=== PATIENT | female | born 1945 | race Caucasian/White ===

== ENCOUNTER 2016-06-26 14:01 | Inpatient (IN) | payer MEDICARE ==
[~2016-06-26] VITALS: Ht 170.2 cm; Wt 79.2 kg
[~2016-06-26 14:01] MED LIST: ALBU18HF INH; BENZ100C PO; DIAZ5TAB4 PO; FLUT1BLS INH; GUAI120L37 PO; METO10TA82 PO; OMEP20CA14 PO; ONDA4TAB7 PO; SENN1TAB5 PO; TEMA15CA6 PO; TIOT18CA INH; ZOLP12.52 PO
[2016-06-26] MEDS ORDERED: SODIUM CHLORIDE FLUSH 10ML SYR IVF ONE (14:30)
[2016-06-26] MEDS ORDERED: FURO20TA3 PO (14:33)
[2016-06-26] MEDS ORDERED: POTA10TA11 PO (14:33)
[2016-06-26] MEDS ORDERED: VANCOMYCIN 1,500 MG in SODIUM CHLORIDE 0.9% 250 ML IV ONE (16:30)
[2016-06-26] MEDS ORDERED: CEFTRIAXONE PMX 1GM/50ML 50 ML IVPB ONE (16:30)
[2016-06-26] MEDS ORDERED: VANCOMYCIN PER PHARMACY MC ONE (16:30)
[2016-06-26 16:41] LABS: PATH.CAST-FLAG NOT PRESENT; SPERM-FLAG NOT PRESENT; SRC-FLAG NOT PRESENT; XTAL-FLAG NOT PRESENT; YLC-FLAG NOT PRESENT
[2016-06-26] MEDS ORDERED: CEFTRIAXONE PMX 1GM/50ML 50 ML ONE (16:59)
[2016-06-26 17:04] LABS: HEMOGLOBIN 8.7 g/dL (11.7-16.4)
[2016-06-26 17:07] LABS: ASPARTATE AMINO TRANSFERASE 36 U/L (15-37); BLOOD UREA NITROGEN 10 mg/dL (7-18)
[2016-06-26 17:11] LABS: DIFF TOTAL CELLS COUNTED 100 CELL DIFF
[2016-06-26 17:15] LABS: VERIFY COUNTS? YES
[2016-06-26 17:16] LABS: ANISOCYTOSIS 1+
[2016-06-26 17:17] LABS: POLYCHROMASIA 1+
[2016-06-26] MEDS ORDERED: SODIUM CHLORIDE FLUSH 10ML SYR IVF PRN (18:00)
[2016-06-26] MEDS ORDERED: VANCOMYCIN PER PHARMACY MC PRN (19:00)
[2016-06-26] MEDS ORDERED: FUROSEMIDE 20 MG/2 ML IV ONE ×2 (19:00→19:30)
[2016-06-26] MEDS ORDERED: DOCUSATE 100 MG CAPSULE PO PRN (19:30)
[2016-06-26] MEDS ORDERED: POLYETHYLENE GLYCOL 17 GM PACKET PO PRN (19:30)
[2016-06-26] MEDS ORDERED: ALBUTEROL SULFATE INH PRN (19:30)
[2016-06-26] MEDS ORDERED: BISACODYL 10 MG SUPP PR PRN (19:30)
[2016-06-26] MEDS ORDERED: CEFTRIAXONE PMX 1GM/50ML 50 ML IV SCH (19:30)
[2016-06-26] MEDS ORDERED: METOCLOPRAMIDE 10MG TABLET PO PRN (19:30)
[2016-06-26] MEDS ORDERED: ONDANSETRON 2MG/ML, 2ML IVP PRN (19:30)
[2016-06-26] MEDS ORDERED: POTASSIUM CHLORIDE 20 MEQ TAB.ER.PRT PO ONE (19:30)
[2016-06-26] MEDS ORDERED: BENZONATATE 100 MG CAPSULE PO PRN (19:30)
[2016-06-26 19:41] LABS: IS PT STATUS REG ER OR PRE ER? NO
[2016-06-26] MEDS ORDERED: PHARMACOKINETIC CONSULTATION MC ONE (20:00)
[2016-06-26] MEDS ORDERED: PHARMACOKINETIC MONITORING MC PRN (20:00)
[2016-06-26] MEDS: ENOXAPARIN 40 MG/0.4 ML SQ SCH (20:34)
[2016-06-26 20:58] VITALS: BP 133/83
[2016-06-26 21:05] LABS: HEMOGLOBIN 8.5 g/dL (11.7-16.4)
[2016-06-26] MEDS ORDERED: ALBUTEROL SULFATE 2.5 MG/3 ML NPPB PRN (22:30)
[2016-06-27 00:44] VITALS: BP 133/83
[2016-06-27] MEDS ORDERED: POTASSIUM PHOSPHATE 44 MEQ in SODIUM CHLORIDE 0.9% 500 ML IV ONE (01:00)
[2016-06-27] MEDS ORDERED: MAGNESIUM SULFATE PMX 2GM/50ML 50 ML IV ONE (01:00)
[2016-06-27 02:01] LABS: IS PT STATUS REG ER OR PRE ER? NO
[2016-06-27 02:35] VITALS: BP 126/72
[2016-06-27 05:21] LABS: HEMOGLOBIN 7.6 g/dL (11.7-16.4)
[2016-06-27 05:22] LABS: ASPARTATE AMINO TRANSFERASE 28 U/L (15-37); BLOOD UREA NITROGEN 13 mg/dL (7-18)
[2016-06-27 05:53] LABS: DIFF TOTAL CELLS COUNTED 100 CELL DIFF
[2016-06-27 05:54] LABS: VERIFY COUNTS? YES
[2016-06-27 05:55] LABS: ANISOCYTOSIS 1+; POLYCHROMASIA 1+
[2016-06-27 05:56] LABS: HYPOCHROMIA 1+
[2016-06-27 05:57] LABS: POIKILOCYTOSIS 1+
[2016-06-27 08:17] VITALS: BP 106/65
[2016-06-27] MEDS: FLUTICASONE/VILANTEROL 200-25MCG/INH INH SCH (09:00)
[2016-06-27] MEDS: OMEPRAZOLE 20 MG CAPSULE.DR PO SCH (09:36)
[2016-06-27] MEDS: FUROSEMIDE 20 MG TABLET PO SCH (09:36)
[2016-06-27 14:13] VITALS: BP 109/66
[2016-06-27] MEDS ORDERED: OMNIPAQUE 350 MG/ML, 100ML BOTTLE ONE (16:48)
[2016-06-27 17:21] LABS: HEMOGLOBIN 8.2 g/dL (11.7-16.4)
[2016-06-27] MEDS: VANCOMYCIN 1,500 MG in SODIUM CHLORIDE 0.9% 250 ML IV SCH (18:16)
[2016-06-27] MEDS: ACETAMINOPHEN 325 MG TABLET PO PRN (18:18)
[2016-06-27] MEDS: ENOXAPARIN 40 MG/0.4 ML SQ SCH (20:27)
[2016-06-27] MEDS: CEFTRIAXONE PMX 1GM/50ML 50 ML IV SCH (20:27)
[2016-06-27 20:41] VITALS: BP 116/74
[2016-06-28] MEDS ORDERED: FOLI-17 PO (01:06)
[2016-06-28 02:00] VITALS: BP 121/76
[2016-06-28 05:18] LABS: BLOOD UREA NITROGEN 13 mg/dL (7-18)
[2016-06-28 05:25] LABS: HEMOGLOBIN 7.2 g/dL (11.7-16.4)
[2016-06-28 06:05] LABS: ANISOCYTOSIS 1+
[2016-06-28 06:06] LABS: MICROCYTOSIS 1+; OVALOCYTES 1+; POLYCHROMASIA 1+; SPHEROCYTES 1+
[2016-06-28 07:30] VITALS: BP 115/71
[2016-06-28] MEDS: OMEPRAZOLE 20 MG CAPSULE.DR PO SCH (09:11)
[2016-06-28] MEDS: FUROSEMIDE 20 MG TABLET PO SCH (09:11)
[2016-06-28 14:50] VITALS: BP 105/64
[2016-06-28] MEDS: VANCOMYCIN 1,500 MG in SODIUM CHLORIDE 0.9% 250 ML IV SCH (17:38)
[2016-06-28 20:11] VITALS: BP 131/71
[2016-06-28] MEDS: FLUTICASONE/VILANTEROL 200-25MCG/INH INH SCH (21:01)
[2016-06-28] MEDS: ENOXAPARIN 40 MG/0.4 ML SQ SCH (21:01)
[2016-06-28] MEDS: CEFTRIAXONE PMX 1GM/50ML 50 ML IV SCH (21:01)
[2016-06-29 02:58] VITALS: BP 110/69
[2016-06-29] MEDS: ACETAMINOPHEN 325 MG TABLET PO PRN (04:54)
[2016-06-29 08:47] VITALS: BP 109/67
[2016-06-29] MEDS: OMEPRAZOLE 20 MG CAPSULE.DR PO SCH (10:15)
[2016-06-29] MEDS: FUROSEMIDE 20 MG TABLET PO SCH (10:15)
[2016-06-29 13:06] VITALS: BP 105/63
[2016-06-29] MEDS: IBUPROFEN 200 MG TABLET PO PRN (15:44)
[2016-06-29] MEDS: VANCOMYCIN 1,500 MG in SODIUM CHLORIDE 0.9% 250 ML IV SCH (17:56)
[2016-06-29 19:29] VITALS: BP 120/75
[2016-06-29] MEDS: ENOXAPARIN 40 MG/0.4 ML SQ SCH (22:40)
[2016-06-29] MEDS: FLUTICASONE/VILANTEROL 200-25MCG/INH INH SCH (22:40)
[2016-06-29] MEDS: CEFTRIAXONE PMX 1GM/50ML 50 ML IV SCH (22:40)
[2016-06-30] VITALS (8 sets, daily range): BP systolic 115–135; BP diastolic 68–79
[2016-06-30 03:55] LABS: HEMOGLOBIN 7.5 g/dL (11.7-16.4)
[2016-06-30] MEDS: FUROSEMIDE 20 MG TABLET PO SCH (09:27)
[2016-06-30] MEDS: OMEPRAZOLE 20 MG CAPSULE.DR PO SCH (09:28)
[2016-06-30] MEDS: VANCOMYCIN 1,500 MG in SODIUM CHLORIDE 0.9% 250 ML IV SCH ×2 (17:54→22:55)
[2016-06-30] MEDS: FLUTICASONE/VILANTEROL 200-25MCG/INH INH SCH (20:16)
[2016-06-30] MEDS: ENOXAPARIN 40 MG/0.4 ML SQ SCH (20:35)
[2016-06-30 23:35] LABS: OCCBLD OBC PASS
[2016-07-01] MEDS: CEFTRIAXONE PMX 1GM/50ML 50 ML IV SCH (00:20)
[2016-07-01] MEDS: IBUPROFEN 200 MG TABLET PO PRN (00:26)
[2016-07-01 02:50] VITALS: BP 143/84
[2016-07-01 07:22] LABS: HEMOGLOBIN 10.4 g/dL (11.7-16.4)
[2016-07-01 07:41] VITALS: BP 121/73
[2016-07-01] MEDS: FUROSEMIDE 20 MG TABLET PO SCH (08:09)
[2016-07-01] MEDS: FLUTICASONE/VILANTEROL 200-25MCG/INH INH SCH (08:09)
[2016-07-01] MEDS: OMEPRAZOLE 20 MG CAPSULE.DR PO SCH (08:09)
[2016-07-01] MEDS ORDERED: CEFD300C2 PO ×2 (11:29→11:31)
== END 2016-07-01 13:50 | disposition home or self-care (01) | DRG 871 ==
LOC: ED 15:39 → EDIP 17:35 → 3NW 19:10
PROVIDERS: ADMIT Hospitalist; ATTEND Internal Medicine
PROC: 0T9B70Z Drainage of Bladder with Drainage Device, Via Natural or Artificial Opening (ICD-10-PCS; principal; 2016-06-26)
PROC: 02HV33Z Insertion of Infusion Device into Superior Vena Cava, Percutaneous Approach (ICD-10-PCS; 2016-06-27)
PROC: B5181ZA Fluoroscopy of Superior Vena Cava using Low Osmolar Contrast, Guidance (ICD-10-PCS; 2016-06-27)
PROC: 30233N1 Transfusion of Nonautologous Red Blood Cells into Peripheral Vein, Percutaneous Approach (ICD-10-PCS; 2016-06-30)
DX: A41.9 Sepsis, unspecified organism (principal); J96.01 Acute respiratory failure with hypoxia; J15.9 Unspecified bacterial pneumonia; C78.01 Secondary malignant neoplasm of right lung; N39.0 Urinary tract infection, site not specified; J44.0 Chronic obstructive pulmonary disease with (acute) lower respiratory infection; E87.6 Hypokalemia; D75.89 Other specified diseases of blood and blood-forming organs; K21.9 Gastro-esophageal reflux disease without esophagitis; J45.909 Unspecified asthma, uncomplicated; D63.8 Anemia in other chronic diseases classified elsewhere; I34.0 Nonrheumatic mitral (valve) insufficiency; Z90.10 Acquired absence of unspecified breast and nipple; Z80.3 Family history of malignant neoplasm of breast; Z88.0 Allergy status to penicillin; Z88.1 Allergy status to other antibiotic agents; Z85.3 Personal history of malignant neoplasm of breast; Z88.2 Allergy status to sulfonamides; Z87.891 Personal history of nicotine dependence; Z85.118 Personal history of other malignant neoplasm of bronchus and lung
CPT/HCPCS: 36415; 36569; 71010; 71275; 76937; 77001; 80048; 80053; 80061; 80202; 81001; 82272; 82607; 82728; 82746; 83605; 83615; 83735; 83880; 84100; 84145; 84443; 84484; 85014; 85018; 85025; 85045; 85610; 85730; 86850; 86870; 86900; 86902; 86922; 86923; 87040; 87086; 93005; 93306; 93970; 99285; J0696; J1650; J3370; Q9967; C1751; J1940; J3475; J7040; J7050; P9016

== ENCOUNTER → 2016-10-24 | Outpatient (CLI) | payer MEDICARE ==
[~2016-10-24] MED LIST changes: +CEFD300C37 PO; +FOLI-17 PO; +FURO20TA3 PO; +OMNIPAQUE 350 MG/ML, 75ML BOTTLE ONE; +POTA10TA11 PO
== END | disposition home or self-care (01) ==
LOC: CFH 13:27
PROVIDERS: ATTEND Internal Medicine Hematology & Oncology
DX: C34.11 Malignant neoplasm of upper lobe, right bronchus or lung (principal); R91.8 Other nonspecific abnormal finding of lung field
CPT/HCPCS: 71260; 82565; Q9967

== ENCOUNTER → 2016-12-19 | Outpatient (CLI) | payer MEDICARE ==
[~2016-12-19] MED LIST changes: +SENN-52 PO; -SENN1TAB5 PO
== END | disposition home or self-care (01) ==
LOC: CFH 09:59
PROVIDERS: ATTEND Internal Medicine Hematology & Oncology
DX: C34.11 Malignant neoplasm of upper lobe, right bronchus or lung (principal); J98.11 Atelectasis; K80.20 Calculus of gallbladder without cholecystitis without obstruction; K76.89 Other specified diseases of liver; K44.9 Diaphragmatic hernia without obstruction or gangrene; E04.1 Nontoxic single thyroid nodule; M85.88 Other specified disorders of bone density and structure, other site; Z85.3 Personal history of malignant neoplasm of breast
CPT/HCPCS: 71260; 82565; Q9967

== ENCOUNTER 2017-02-24 08:24 | Day surgery (SDC) | payer MEDICARE ==
[~2017-02-24] VITALS: Ht 170.2 cm; Wt 82.8 kg
[~2017-02-24 08:24] MED LIST changes: -OMNIPAQUE 350 MG/ML, 75ML BOTTLE ONE
[2017-02-24] MEDS ORDERED: PLEASE ENTER HEIGHT AND WEIGHT MC SCH (09:00)
[2017-02-24] MEDS ORDERED: VANCOMYCIN PMX 1GM/200ML 200 ML IVPB ONE (09:00)
[2017-02-24 09:21] VITALS: BP 137/87
[2017-02-24] MEDS ORDERED: SODIUM CHLORIDE 0.9% 1,000 ML IV SCH (09:23)
[2017-02-24] MEDS ORDERED: LIDOCAINE 1%, 20ML ONE (10:13)
[2017-02-24] MEDS ORDERED: FENTANYL PF 100 MCG/2ML ONE ×2 (10:22→11:48)
[2017-02-24] MEDS ORDERED: MIDAZOLAM 1 MG/ML, 5ML ONE (11:48)
[2017-02-24] MEDS ORDERED: NALOXONE 1 MG/ML, 2ML ONE (11:48)
[2017-02-24] MEDS ORDERED: FLUMAZENIL 0.1 MG/1 ML, 5ML ONE (11:48)
== END 2017-02-24 14:15 ==
LOC: OUT 08:24
PROVIDERS: ATTEND Internal Medicine Hematology & Oncology
DX: Z45.2 Encounter for adjustment and management of vascular access device (principal); C50.919 Malignant neoplasm of unspecified site of unspecified female breast; C34.90 Malignant neoplasm of unspecified part of unspecified bronchus or lung; Z87.891 Personal history of nicotine dependence; Z88.1 Allergy status to other antibiotic agents; Z88.0 Allergy status to penicillin
CPT/HCPCS: 36561; 76937; 77001; 99156; 99157; C1788; J1642; J2250; J3010; J3370; J3490; J7030; J2310

== ENCOUNTER → 2017-04-18 | Outpatient (CLI) | payer MEDICARE | END | disposition home or self-care (01) | LOC: CFH 08:38 | PROVIDERS: ATTEND Internal Medicine Hematology & Oncology | DX: C50.911 Malignant neoplasm of unspecified site of right female breast (principal); C34.11 Malignant neoplasm of upper lobe, right bronchus or lung | CPT/HCPCS: 71260 ==

== ENCOUNTER → 2017-06-26 | Outpatient (CLI) | payer MEDICARE ==
[~2017-06-26] MED LIST changes: +MAGN400T26 PO; +OMNIPAQUE 350 MG/ML, 75ML BOTTLE ONE; +PHOS250T3 PO
== END | disposition home or self-care (01) ==
LOC: RAD 09:41
PROVIDERS: ATTEND Internal Medicine Hematology & Oncology
DX: R91.8 Other nonspecific abnormal finding of lung field (principal); C34.11 Malignant neoplasm of upper lobe, right bronchus or lung; Z85.3 Personal history of malignant neoplasm of breast
CPT/HCPCS: 71260; J1642; Q9967

== ENCOUNTER → 2017-09-26 | Outpatient (CLI) | payer MEDICARE | LOC: CFH 08:54 | PROVIDERS: ATTEND Internal Medicine Hematology & Oncology | DX: C34.11 Malignant neoplasm of upper lobe, right bronchus or lung (principal); Z85.3 Personal history of malignant neoplasm of breast | CPT/HCPCS: 71260; 82565; Q9967 ==

== ENCOUNTER → 2017-12-05 | Outpatient (CLI) | payer MEDICARE ==
[~2017-12-05] MED LIST changes: +OMNIPAQUE 350 MG/ML, 100ML BOTTLE ONE; -OMNIPAQUE 350 MG/ML, 75ML BOTTLE ONE
== END | disposition home or self-care (01) ==
LOC: CFH 08:34
PROVIDERS: ATTEND Internal Medicine Hematology & Oncology
DX: C50.911 Malignant neoplasm of unspecified site of right female breast (principal); C34.11 Malignant neoplasm of upper lobe, right bronchus or lung; Z85.3 Personal history of malignant neoplasm of breast; C78.00 Secondary malignant neoplasm of unspecified lung; Z87.891 Personal history of nicotine dependence
CPT/HCPCS: 71260; 82565; Q9967

== ENCOUNTER 2018-02-09 16:03 | Inpatient (IN) | payer MEDICARE ==
[~2018-02-09] VITALS: Ht 170.2 cm; Wt 87.8 kg
[~2018-02-09 16:03] MED LIST changes: -OMNIPAQUE 350 MG/ML, 100ML BOTTLE ONE
[2018-02-09 16:57] LABS: ANION GAP 12 mmol/L (5-15); CALCIUM 8.4 mg/dL (8.5-10.1); CHLORIDE 102 mmol/L (98-107); CREATININE 1.33 mg/dL (0.55-1.02)
[2018-02-09 16:59] LABS: BASOPHILS % (AUTO) 0 % (0-1); EOSINOPHILS # (AUTO) 0.11 x10^3/uL (0-0.4); EOSINOPHILS % (AUTO) 2 % (1-7); LYMPHOCYTES # (AUTO) 3.82 x10^3/uL (1-3.4); LYMPHOCYTES % (AUTO) 58 % (22-44); MD SCAN; MEAN CORPUSCULAR HEMOGLOBIN 36.5 pg (27.0-34.8); MEAN CORPUSCULAR HGB CONC 34.8 g/dL (32.4-35.8); MEAN PLATELET VOLUME 8.2 fL (7.4-10.4); MONOCYTES # (AUTO) 0.26 x10^3/uL (0.2-0.8); MONOCYTES % (AUTO) 4 % (2-9); NEUTROPHILS # (AUTO) 2.43 x10^3/uL (1.8-6.8); NEUTROPHILS % (AUTO) 37 % (42-75); RED BLOOD COUNT 1.94 x10^6/uL (3.82-5.3); RED CELL DISTRIBUTION WIDTH 13.3 % (9.6-15.2)
[2018-02-09 17:00] LABS: PLATELET COUNT 5 x10^3/uL (130-400)
[2018-02-09] MEDS ORDERED: FOLI0.4T2 PO (17:13)
[2018-02-09] MEDS ORDERED: POTA25TA4 PO (17:14)
[2018-02-09] MEDS ORDERED: ALPR-475 PO (17:14)
[2018-02-09] MEDS ORDERED: POTASSIUM CHLORIDE 40 MEQ in SODIUM CHLORIDE 0.9% 500 ML IV ONE (17:30)
[2018-02-09] MEDS ORDERED: POTASSIUM CHLORIDE 20 MEQ TAB.ER.PRT PO ONE (18:30)
[2018-02-09] MEDS ORDERED: POLYETHYLENE GLYCOL 17 GM PACKET PO PRN (18:30)
[2018-02-09] MEDS ORDERED: BISACODYL 10 MG SUPP PR PRN (18:30)
[2018-02-09] MEDS ORDERED: LABETALOL 5MG/ML, 20ML IVPush PRN (18:30)
[2018-02-09] MEDS ORDERED: DOCUSATE 100 MG CAPSULE PO PRN (18:30)
[2018-02-09] MEDS ORDERED: ENALAPRILAT 1.25 MG/ML, 2ML IVPush PRN (18:30)
[2018-02-09] MEDS ORDERED: ONDANSETRON 4 MG TABLET PO PRN (18:30)
[2018-02-09 18:32] VITALS: BP 106/69
[2018-02-09 18:42] LABS: INTERNATIONAL NORMALIZED RATIO 0.93 (0.93-1.1); PROTHROMBIN TIME 9.7 Seconds (9.6-11.5)
[2018-02-09] MEDS: ACETAMINOPHEN 325 MG TABLET PO PRN (21:13)
[2018-02-09] MEDS: DIPHENHYDRAMINE 25 MG CAPSULE PO PRN (21:13)
[2018-02-09 21:54] VITALS: BP 104/68
[2018-02-09 22:13] VITALS: BP 99/64
[2018-02-09 22:33] VITALS: BP 105/68
[2018-02-09 23:02] VITALS: BP 107/68
[2018-02-09 23:50] VITALS: BP 92/58
[2018-02-10] VITALS (14 sets, daily range): BP systolic 89–112; BP diastolic 50–69
[2018-02-10] MEDS: GUAIFENESIN/DM 200-20MG, 10ML UDC PO PRN ×2 (06:31→21:00)
[2018-02-10 06:35] LABS: MEAN CORPUSCULAR HEMOGLOBIN 35.1 pg (27.0-34.8); MEAN CORPUSCULAR HGB CONC 34.6 g/dL (32.4-35.8); MEAN CORPUSCULAR VOLUME 101.3 fL (80-100); MEAN PLATELET VOLUME 7.9 fL (7.4-10.4); RED BLOOD COUNT 1.83 x10^6/uL (3.82-5.3); RED CELL DISTRIBUTION WIDTH 15.7 % (9.6-15.2)
[2018-02-10 06:36] LABS: PLATELET COUNT 44 x10^3/uL (130-400)
[2018-02-10 06:45] LABS: ANION GAP 7 mmol/L (5-15); CALCIUM 7.9 mg/dL (8.5-10.1); CHLORIDE 109 mmol/L (98-107); CREATININE 1.19 mg/dL (0.55-1.02)
[2018-02-10 06:51] LABS: MD YES
[2018-02-10 07:03] LABS: ANISOCYTOSIS 1+; BAND#(MANUAL) 0.11 x10^3/uL; BANDS%(MANUAL) 3 % (0-7); EOS#(MANUAL) 0.04 x10^3/uL (0.0-0.4); EOS% (MANUAL) 1 % (1-7); LYMPH#(MANUAL) 2.58 x10^3/uL (1-3.4); LYMPHS% (MANUAL) 68 % (22-44); MONOS#(MANUAL) 0.08 x10^3/uL (0.3-2.7); MONOS% (MANUAL) 2 % (2-9); REACTIVE LYMPHS # (MANUAL) 0.08 x10^3/uL (0-0); REACTIVE LYMPHS % (MANUAL) 2 % (0-0); SEG#(MANUAL) 0.91 x10^3/uL (1.8-6.8); SEGS% (MANUAL) 24 % (42-75)
[2018-02-10 07:06] LABS: <PLATELET ESTIMATE> DECREASED; <PLT MORPHOLOGY> NORMAL PLT MORPH; TOXIC GRAN 1+
[2018-02-10] MEDS: FOLIC ACID 1 MG TABLET PO SCH (08:18)
[2018-02-10 08:53] LABS: ALANINE AMINOTRANSFERASE 20 U/L (12-78); ALBUMIN 2.6 g/dL (3.4-5.0); ANION GAP 7 mmol/L (5-15); CALCIUM 7.8 mg/dL (8.5-10.1); CHLORIDE 110 mmol/L (98-107); CREATININE 1.41 mg/dL (0.55-1.02)
[2018-02-10 08:55] LABS: ALKALINE PHOSPHATASE 93 U/L (45-117); BILIRUBIN,TOTAL 0.6 mg/dL (0.2-1.0); TOTAL PROTEIN 5.8 g/dL (6.4-8.2)
[2018-02-10] MEDS: FLUTICASONE/VILANTEROL 200-25MCG/INH INH SCH (09:42)
[2018-02-10] MEDS ORDERED: POTASSIUM CHLORIDE 20 MEQ TAB.ER.PRT PO ONE (13:30)
[2018-02-10 13:40] LABS: MEAN CORPUSCULAR HEMOGLOBIN 34.3 pg (27.0-34.8); MEAN CORPUSCULAR HGB CONC 34.7 g/dL (32.4-35.8); MEAN CORPUSCULAR VOLUME 98.8 fL (80-100); RED BLOOD COUNT 2.26 x10^6/uL (3.82-5.3); RED CELL DISTRIBUTION WIDTH 16.1 % (9.6-15.2)
[2018-02-10 13:41] LABS: MEAN PLATELET VOLUME 8.1 fL (7.4-10.4)
[2018-02-10 13:45] LABS: PLATELET COUNT 43 x10^3/uL (130-400)
[2018-02-10 13:51] LABS: MD YES
[2018-02-10 13:53] LABS: EOS#(MANUAL) 0.04 x10^3/uL (0.0-0.4); EOS% (MANUAL) 1 % (1-7); LYMPH#(MANUAL) 2.46 x10^3/uL (1-3.4); LYMPHS% (MANUAL) 56 % (22-44); MONOS#(MANUAL) 0.09 x10^3/uL (0.3-2.7); MONOS% (MANUAL) 2 % (2-9); REACTIVE LYMPHS # (MANUAL) 0.04 x10^3/uL (0-0); REACTIVE LYMPHS % (MANUAL) 1 % (0-0); SEG#(MANUAL) 1.76 x10^3/uL (1.8-6.8); SEGS% (MANUAL) 40 % (42-75)
[2018-02-10 13:54] LABS: ANISOCYTOSIS 1+
[2018-02-10 13:55] LABS: <PLATELET ESTIMATE> DECREASED; <PLT MORPHOLOGY> NORMAL PLT MORPH; TOXIC GRAN 1+
[2018-02-10] MEDS: SODIUM CHLORIDE 0.9% 1,000 ML IV SCH (16:34)
[2018-02-10] MEDS: ACETAMINOPHEN 325 MG TABLET PO PRN (19:51)
[2018-02-10] MEDS: DIPHENHYDRAMINE 25 MG CAPSULE PO PRN (19:51)
[2018-02-11 01:12] VITALS: BP 97/64
[2018-02-11] MEDS: SODIUM CHLORIDE 0.9% 1,000 ML IV SCH (06:06)
[2018-02-11 06:18] LABS: MEAN CORPUSCULAR HEMOGLOBIN 34.7 pg (27.0-34.8); MEAN CORPUSCULAR HGB CONC 35.3 g/dL (32.4-35.8); MEAN CORPUSCULAR VOLUME 98.2 fL (80-100); RED BLOOD COUNT 2.58 x10^6/uL (3.82-5.3); RED CELL DISTRIBUTION WIDTH 16.2 % (9.6-15.2)
[2018-02-11 06:26] LABS: ALBUMIN 2.4 g/dL (3.4-5.0); ANION GAP 8 mmol/L (5-15); CALCIUM 7.6 mg/dL (8.5-10.1); CHLORIDE 111 mmol/L (98-107); CREATININE 1.11 mg/dL (0.55-1.02)
[2018-02-11 06:44] LABS: BASOPHILS % (AUTO) 0 % (0-1); EOSINOPHILS # (AUTO) 0.15 x10^3/uL (0-0.4); EOSINOPHILS % (AUTO) 3 % (1-7); LYMPHOCYTES # (AUTO) 3.01 x10^3/uL (1-3.4); LYMPHOCYTES % (AUTO) 61 % (22-44); MD SCAN; MEAN PLATELET VOLUME 8.3 fL (7.4-10.4); MONOCYTES # (AUTO) 0.27 x10^3/uL (0.2-0.8); MONOCYTES % (AUTO) 5 % (2-9); NEUTROPHILS # (AUTO) 1.54 x10^3/uL (1.8-6.8); NEUTROPHILS % (AUTO) 31 % (42-75)
[2018-02-11 06:50] LABS: PLATELET COUNT 32 x10^3/uL (130-400)
[2018-02-11 07:05] VITALS: BP 104/70
[2018-02-11] MEDS: FOLIC ACID 1 MG TABLET PO SCH (07:37)
[2018-02-11] MEDS: FLUTICASONE/VILANTEROL 200-25MCG/INH INH SCH (07:37)
[2018-02-11] MEDS: ACETAMINOPHEN 325 MG TABLET PO PRN (08:02)
[2018-02-11] MEDS: GUAIFENESIN/DM 200-20MG, 10ML UDC PO PRN (08:03)
== END 2018-02-11 11:16 | disposition home or self-care (01) | DRG 813 ==
LOC: ED 17:25 → 3NW 17:30 → ED 17:49 → 3NW 17:52 → ED 18:15
PROVIDERS: ADMIT Hospitalist; ATTEND Hospitalist
PROC: 30233R1 Transfusion of Nonautologous Platelets into Peripheral Vein, Percutaneous Approach (ICD-10-PCS; principal; 2018-02-09)
PROC: 30233N1 Transfusion of Nonautologous Red Blood Cells into Peripheral Vein, Percutaneous Approach (ICD-10-PCS; 2018-02-09)
DX: D69.6 Thrombocytopenia, unspecified (principal); N17.9 Acute kidney failure, unspecified; C34.90 Malignant neoplasm of unspecified part of unspecified bronchus or lung; E87.6 Hypokalemia; N18.9 Chronic kidney disease, unspecified; R04.0 Epistaxis; K21.9 Gastro-esophageal reflux disease without esophagitis; J45.909 Unspecified asthma, uncomplicated; T45.1X5A Adverse effect of antineoplastic and immunosuppressive drugs, initial encounter; D64.81 Anemia due to antineoplastic chemotherapy; Z80.3 Family history of malignant neoplasm of breast; Z85.118 Personal history of other malignant neoplasm of bronchus and lung; Z85.3 Personal history of malignant neoplasm of breast; Z87.891 Personal history of nicotine dependence; Z90.11 Acquired absence of right breast and nipple; Y92.89 Other specified places as the place of occurrence of the external cause; Z88.0 Allergy status to penicillin; Z88.2 Allergy status to sulfonamides
CPT/HCPCS: 36415; 80048; 80053; 82040; 84443; 85025; 85610; 85730; 86850; 86870; 86900; 86902; 86922; 86923; 93005; G0378; J3480; Q0162; J7030; J7040; P9016; P9035; Q0163

== ENCOUNTER 2018-03-26 15:33 | Inpatient (IN) | payer MEDICARE ==
[~2018-03-26] VITALS: Ht 170.2 cm; Wt 88.3 kg
[~2018-03-26 15:33] MED LIST changes: +ALPR-475 PO; +FOLI0.4T2 PO; +POTA25TA4 PO
--- NOTE | 2018-03-26 15:48 | NUR ---
72 Y/O FEMALE PRESENTS TO ED WITH C/O THROMBOCYTOPENIA AND NEUTROPENIA. "MY PLATELETS WERE LOW FRIDAY. I CAME IN FOR 1 UNIT OF PLATELETS. FRIDAY I CAME IN FOR 2 UNITS OF PRBC. LAST NIGHT I HAD A BLOODY NOSE. SO I CAME IN TODAY. THIS IS MY SECOND UNIT OF PLATELETS. AFTER MY FIRST UNIT OF PLATELETS TODAY, MY PLATELET COUNT WAS 2000." PT PLACED ON CONT PULSE OX,NIBP, CARDIA MONITOR. NO C/O N/V/D, TRAUMA, SYNCOPE, CP, SOB. PER REPORT FROM JET MAHAN. PT HAD A PLATELET COUNT OF 6000 FRIDAY. TODAY AFTER THE FIRST UNIT OF PLATELETS HER COUNT WENT TO 2000. DIC PANEL WAS DRAWN. EDMD BEDSIDE.
--- NOTE | 2018-03-26 16:24 | NUR ---
SECOND UNIT OF PLATLETS COMPLETE. STARTED IN [facility]. NO ACUTE DISTRESS. VSS: TEMP 98.2 HR 84 RESPS 15 127/55 97% RA
[2018-03-26] MEDS ORDERED: POTASSIUM CHLORIDE 40 MEQ in SODIUM CHLORIDE 0.9% 500 ML IV ONE (16:30)
[2018-03-26] MEDS ORDERED: POTASSIUM CHLORIDE 40 MEQ in SODIUM CHLORIDE 0.9% 100 ML IV ONE (17:30)
--- NOTE | 2018-03-26 17:35 | NUR ---
PT RESTING ON GURNEY. NO COMPLICATIONS WITH PORT. PORT WAS ACCESSED MANAGER CLIENT IN ER. NO NEEDS REQUESTED AT THIS TIME. FAMILY BEDSIDE.
[2018-03-26] MEDS ORDERED: MAGNESIUM SULFATE PMX 2GM/50ML 50 ML IV ONE (18:00)
[2018-03-26] MEDS ORDERED: POLYETHYLENE GLYCOL 17 GM PACKET PO PRN (18:00)
[2018-03-26] MEDS ORDERED: DOCUSATE 100 MG CAPSULE PO PRN (18:00)
[2018-03-26] MEDS ORDERED: hydrALAzine 20 MG/ML, 1ML IVPush PRN (18:00)
[2018-03-26] MEDS ORDERED: ALBUTEROL SULFATE 2.5 MG/3 ML NPPB SCH (18:00)
[2018-03-26] MEDS ORDERED: BISACODYL 10 MG SUPP PR PRN (18:00)
--- NOTE | 2018-03-26 18:08 | NUR ---
pt has been on reverse isolation since brought to ed. report to JET Burciaga
--- NOTE | 2018-03-26 18:22 | NUR ---
received critical value of platelets at 3000. reported to hospitalist and JET Burciaga recieving rn
--- NOTE | 2018-03-26 18:25 | NUR ---
PATIENT TRANSFERRED TO FLOOR. PT LEFT WITH ALL PERSONAL BELONGINGS.
[2018-03-26] MEDS ORDERED: IMMUNE GLOB (GAMUNEX) 10GM/100ML IV ONE (19:30)
[2018-03-26] MEDS: POTASSIUM CHLORIDE 20 MEQ TAB.ER.PRT PO SCH (20:36)
[2018-03-26 20:52] VITALS: BP 123/70
[2018-03-26] MEDS: ACETAMINOPHEN 325 MG TABLET PO PRN (20:57)
[2018-03-26] MEDS: BUDESONIDE 0.5 MG/2 ML INHA NPPB SCH (21:54)
[2018-03-26] MEDS: ALBUTEROL SULFATE 2.5 MG/3 ML NPPB SCH (21:54)
[2018-03-27] VITALS (13 sets, daily range): BP systolic 90–107; BP diastolic 52–66
[2018-03-27] MEDS ORDERED: DIPHENHYDRAMINE 50 MG CAPSULE PO ONE
[2018-03-27] MEDS ORDERED: DIPHENHYDRAMINE 50 MG CAPSULE ONE (00:01)
[2018-03-27] MEDS: NS + 20MEQ KCL 1,000 ML IV SCH ×2 (00:05→17:49)
[2018-03-27] MEDS: ALBUTEROL SULFATE 2.5 MG/3 ML NPPB SCH ×5 (03:00→21:30)
[2018-03-27 05:41] LABS: MEAN CORPUSCULAR HEMOGLOBIN 35.1 pg (27.0-34.8); MEAN CORPUSCULAR VOLUME 100.3 fL (80-100); MEAN PLATELET VOLUME 8.7 fL (7.4-10.4); RED BLOOD COUNT 1.81 x10^6/uL (3.82-5.3); RED CELL DISTRIBUTION WIDTH 22.9 % (9.6-15.2)
[2018-03-27 05:43] LABS: ANION GAP 9 mmol/L (5-15); CALCIUM 7.8 mg/dL (8.5-10.1); CHLORIDE 109 mmol/L (98-107); CREATININE 1.37 mg/dL (0.55-1.02)
[2018-03-27 05:49] LABS: PLATELET COUNT 3 x10^3/uL (130-400)
[2018-03-27 06:24] LABS: BASOPHILS % (AUTO) 0 % (0-1); EOSINOPHILS # (AUTO) 0.03 x10^3/uL (0-0.4); EOSINOPHILS % (AUTO) 1 % (1-7); LYMPHOCYTES # (AUTO) 2.32 x10^3/uL (1-3.4); LYMPHOCYTES % (AUTO) 84 % (22-44); MD SCAN; MONOCYTES # (AUTO) 0.02 x10^3/uL (0.2-0.8); MONOCYTES % (AUTO) 1 % (2-9); NEUTROPHILS # (AUTO) 0.37 x10^3/uL (1.8-6.8); NEUTROPHILS % (AUTO) 14 % (42-75)
[2018-03-27] MEDS: BUDESONIDE 0.5 MG/2 ML INHA NPPB SCH ×3 (06:54→21:30)
[2018-03-27] MEDS ORDERED: DIPHENHYDRAMINE 50 MG/ML, 1ML IVPush ONE (07:30)
[2018-03-27] MEDS ORDERED: ACETAMINOPHEN 325 MG TABLET PO ONE (07:30)
[2018-03-27] MEDS ORDERED: FLUTICASONE/VILANTEROL 200-25MCG/INH INH SCH (09:00)
[2018-03-27] MEDS ORDERED: DIPHENHYDRAMINE 25 MG CAPSULE PO ONE (09:00)
[2018-03-27] MEDS: POTASSIUM CHLORIDE 20 MEQ TAB.ER.PRT PO SCH ×2 (09:34→17:25)
[2018-03-27] MEDS: DEXAMETHASONE 4 MG TABLET PO SCH (09:34)
[2018-03-27] MEDS: FOLIC ACID 1 MG TABLET PO SCH (09:34)
[2018-03-27 11:14] LABS: ALBUMIN 2.5 g/dL (3.4-5.0); ANION GAP 8 mmol/L (5-15); CALCIUM 7.7 mg/dL (8.5-10.1); CHLORIDE 108 mmol/L (98-107); D-DIMER 1.74 ug/mlFEU (0.00-0.52); INTERNATIONAL NORMALIZED RATIO 0.98 (0.93-1.1); PROTHROMBIN TIME 10.4 Seconds (9.6-11.5)
[2018-03-27 11:17] LABS: ALANINE AMINOTRANSFERASE 23 U/L (12-78); ALKALINE PHOSPHATASE 70 U/L (45-117); BILIRUBIN,TOTAL 0.3 mg/dL (0.2-1.0); CREATININE 1.29 mg/dL (0.55-1.02); TOTAL PROTEIN 5.9 g/dL (6.4-8.2)
[2018-03-27 14:24] LABS: MEAN CORPUSCULAR HEMOGLOBIN 35.4 pg (27.0-34.8); MEAN CORPUSCULAR HGB CONC 35.4 g/dL (32.4-35.8); RED BLOOD COUNT 1.84 x10^6/uL (3.82-5.3); RED CELL DISTRIBUTION WIDTH 22.9 % (9.6-15.2)
[2018-03-27 14:33] LABS: MD YES; PLATELET COUNT 46 x10^3/uL (130-400)
[2018-03-27 14:38] LABS: BAND#(MANUAL) 0.07 x10^3/uL; BANDS%(MANUAL) 6 % (0-7); EOS#(MANUAL) 0.01 x10^3/uL (0.0-0.4); EOS% (MANUAL) 1 % (1-7); LYMPH#(MANUAL) 0.59 x10^3/uL (1-3.4); LYMPHS% (MANUAL) 49 % (22-44); MONOS#(MANUAL) 0.01 x10^3/uL (0.3-2.7); MONOS% (MANUAL) 1 % (2-9); REACTIVE LYMPHS # (MANUAL) 0.01 x10^3/uL (0-0); REACTIVE LYMPHS % (MANUAL) 1 % (0-0); SEGS% (MANUAL) 42 % (42-75)
[2018-03-27 14:39] LABS: <PLATELET ESTIMATE> DECREASED; <PLT MORPHOLOGY> NORMAL PLT MORPH; ANISOCYTOSIS 1+; TOXIC GRAN 1+
[2018-03-28 02:36] VITALS: BP 123/66
[2018-03-28] MEDS: ALBUTEROL SULFATE 2.5 MG/3 ML NPPB SCH ×3 (03:00→16:54)
[2018-03-28 06:05] LABS: ANION GAP 7 mmol/L (5-15); CALCIUM 7.2 mg/dL (8.5-10.1); CHLORIDE 113 mmol/L (98-107); CREATININE 1.23 mg/dL (0.55-1.02)
[2018-03-28 06:17] LABS: MEAN CORPUSCULAR HEMOGLOBIN 33.5 pg (27.0-34.8); MEAN CORPUSCULAR VOLUME 98.6 fL (80-100); MEAN PLATELET VOLUME 9.1 fL (7.4-10.4); RED BLOOD COUNT 2.31 x10^6/uL (3.82-5.3); RED CELL DISTRIBUTION WIDTH 20.2 % (9.6-15.2)
[2018-03-28 06:22] LABS: PLATELET COUNT 31 x10^3/uL (130-400)
[2018-03-28 06:39] LABS: MD YES
[2018-03-28 06:42] LABS: BAND#(MANUAL) 0.02 x10^3/uL; BANDS%(MANUAL) 1 % (0-7); LYMPH#(MANUAL) 0.75 x10^3/uL (1-3.4); LYMPHS% (MANUAL) 47 % (22-44); MONOS#(MANUAL) 0.03 x10^3/uL (0.3-2.7); MONOS% (MANUAL) 2 % (2-9); SEGS% (MANUAL) 50 % (42-75)
[2018-03-28 06:43] LABS: ANISOCYTOSIS 1+
[2018-03-28 06:44] LABS: <PLATELET ESTIMATE> DECREASED; <PLT MORPHOLOGY> NORMAL PLT MORPH
[2018-03-28 08:00] VITALS: BP 130/72
[2018-03-28] MEDS: BUDESONIDE 0.5 MG/2 ML INHA NPPB SCH (09:15)
[2018-03-28] MEDS: FOLIC ACID 1 MG TABLET PO SCH (09:53)
[2018-03-28] MEDS: DEXAMETHASONE 4 MG TABLET PO SCH (09:53)
[2018-03-28] MEDS: POTASSIUM CHLORIDE 20 MEQ TAB.ER.PRT PO SCH (09:53)
[2018-03-28] MEDS: ONDANSETRON 2MG/ML, 2ML IVPush PRN ×2 (11:51→20:50)
[2018-03-28 13:00] VITALS: BP 101/65
[2018-03-28 18:08] LABS: MICROSCOPIC NOT IND
[2018-03-28 20:47] VITALS: BP 145/83
[2018-03-28] MEDS: ACETAMINOPHEN 325 MG TABLET PO PRN (20:50)
[2018-03-28] MEDS: INSULIN LISPRO 100 UNITS/ML, PEN SQ-INSULIN SCH (21:00)
[2018-03-29] MEDS: ONDANSETRON 2MG/ML, 2ML IVPush PRN ×2 (02:34→14:50)
[2018-03-29 02:35] VITALS: BP 142/82
[2018-03-29] MEDS: ALBUTEROL SULFATE 2.5 MG/3 ML NPPB SCH ×4 (02:46→21:00)
[2018-03-29 05:58] LABS: ANION GAP 4 mmol/L (5-15); CALCIUM 7.9 mg/dL (8.5-10.1); CHLORIDE 111 mmol/L (98-107); CREATININE 1.29 mg/dL (0.55-1.02)
[2018-03-29 05:59] LABS: MEAN CORPUSCULAR HEMOGLOBIN 34.1 pg (27.0-34.8); MEAN CORPUSCULAR HGB CONC 34.8 g/dL (32.4-35.8); RED BLOOD COUNT 2.58 x10^6/uL (3.82-5.3); RED CELL DISTRIBUTION WIDTH 20.8 % (9.6-15.2)
[2018-03-29 06:32] LABS: HEMOGLOBIN A1C 5.9 % (4.2-6.3)
[2018-03-29 06:44] LABS: BASOPHILS # (AUTO) 0.01 x10^3/uL (0-0.1); BASOPHILS % (AUTO) 1 % (0-1); EOSINOPHILS % (AUTO) 0 % (1-7); LYMPHOCYTES # (AUTO) 1.31 x10^3/uL (1-3.4); LYMPHOCYTES % (AUTO) 51 % (22-44); MD SCAN; MEAN PLATELET VOLUME 8.9 fL (7.4-10.4); MONOCYTES # (AUTO) 0.07 x10^3/uL (0.2-0.8); MONOCYTES % (AUTO) 3 % (2-9); NEUTROPHILS # (AUTO) 1.16 x10^3/uL (1.8-6.8); NEUTROPHILS % (AUTO) 45 % (42-75)
[2018-03-29 06:57] VITALS: BP 153/81
[2018-03-29] MEDS: INSULIN LISPRO 100 UNITS/ML, PEN SQ-INSULIN SCH ×4 (07:00→21:51)
[2018-03-29] MEDS ORDERED: MAGNESIUM SULFATE PMX 4GM/100M 100 ML IV ONE (07:00)
[2018-03-29 07:18] LABS: PLATELET COUNT 26 x10^3/uL (130-400)
[2018-03-29] MEDS: BUDESONIDE 0.5 MG/2 ML INHA NPPB SCH ×2 (07:20→21:00)
[2018-03-29] MEDS: DEXAMETHASONE 4 MG TABLET PO SCH (09:26)
[2018-03-29] MEDS: OMEPRAZOLE 20 MG CAPSULE.DR PO SCH (09:27)
[2018-03-29] MEDS: FOLIC ACID 1 MG TABLET PO SCH (09:27)
[2018-03-29] MEDS: NYSTATIN 500,000 UNITS/5 ML UDC PO SCH ×3 (09:27→21:35)
[2018-03-29 13:59] VITALS: BP 121/75
[2018-03-29 19:59] VITALS: BP 115/75
[2018-03-30] MEDS: ALBUTEROL SULFATE 2.5 MG/3 ML NPPB SCH (02:11)
[2018-03-30 02:37] VITALS: BP 127/79
[2018-03-30] MEDS: NYSTATIN 500,000 UNITS/5 ML UDC PO SCH ×4 (05:26→22:48)
[2018-03-30 05:35] LABS: MEAN CORPUSCULAR HEMOGLOBIN 33.9 pg (27.0-34.8); MEAN CORPUSCULAR HGB CONC 34.3 g/dL (32.4-35.8); MEAN CORPUSCULAR VOLUME 98.8 fL (80-100); MEAN PLATELET VOLUME 8.6 fL (7.4-10.4); RED BLOOD COUNT 2.65 x10^6/uL (3.82-5.3); RED CELL DISTRIBUTION WIDTH 19.8 % (9.6-15.2)
[2018-03-30 05:43] LABS: ANION GAP 6 mmol/L (5-15); CALCIUM 7.6 mg/dL (8.5-10.1); CHLORIDE 108 mmol/L (98-107); PLATELET COUNT 20 x10^3/uL (130-400)
[2018-03-30 05:44] LABS: CREATININE 1.26 mg/dL (0.55-1.02)
[2018-03-30 06:06] LABS: BASOPHILS # (AUTO) 0.01 x10^3/uL (0-0.1); BASOPHILS % (AUTO) 0 % (0-1); EOSINOPHILS % (AUTO) 0 % (1-7); LYMPHOCYTES # (AUTO) 1.46 x10^3/uL (1-3.4); LYMPHOCYTES % (AUTO) 50 % (22-44); MD SCAN; MONOCYTES # (AUTO) 0.15 x10^3/uL (0.2-0.8); MONOCYTES % (AUTO) 5 % (2-9); NEUTROPHILS # (AUTO) 1.28 x10^3/uL (1.8-6.8); NEUTROPHILS % (AUTO) 44 % (42-75)
[2018-03-30 06:44] VITALS: BP 124/71
[2018-03-30] MEDS: INSULIN LISPRO 100 UNITS/ML, PEN SQ-INSULIN SCH ×4 (07:55→21:05)
[2018-03-30] MEDS: FOLIC ACID 1 MG TABLET PO SCH (07:56)
[2018-03-30] MEDS: OMEPRAZOLE 20 MG CAPSULE.DR PO SCH (07:57)
[2018-03-30] MEDS: DEXAMETHASONE 4 MG TABLET PO SCH (07:58)
[2018-03-30] MEDS: ACETAMINOPHEN 325 MG TABLET PO PRN (08:09)
[2018-03-30] MEDS: ONDANSETRON 2MG/ML, 2ML IVPush PRN ×2 (08:09→18:14)
[2018-03-30] MEDS ORDERED: ALBUTEROL SULFATE 2.5 MG/3 ML NPPB SCH (10:30)
[2018-03-30 12:15] VITALS: BP 136/79
[2018-03-30] MEDS ORDERED: ALUMINUM/MAG/SIMETHICONE 30 ML UDC PO PRN (13:30)
[2018-03-30] MEDS ORDERED: PROMETHAZINE 25MG TABLET PO PRN (13:30)
[2018-03-30 19:27] VITALS: BP 117/74
[2018-03-31 02:03] VITALS: BP 127/78
[2018-03-31 04:56] LABS: MEAN CORPUSCULAR HEMOGLOBIN 33.7 pg (27.0-34.8); MEAN CORPUSCULAR HGB CONC 34.1 g/dL (32.4-35.8); MEAN CORPUSCULAR VOLUME 99.1 fL (80-100); RED BLOOD COUNT 2.61 x10^6/uL (3.82-5.3); RED CELL DISTRIBUTION WIDTH 20.1 % (9.6-15.2)
[2018-03-31 05:06] LABS: ANION GAP 5 mmol/L (5-15); CALCIUM 7.4 mg/dL (8.5-10.1); CHLORIDE 108 mmol/L (98-107)
[2018-03-31 05:16] LABS: BASOPHILS # (AUTO) 0.01 x10^3/uL (0-0.1); BASOPHILS % (AUTO) 0 % (0-1); EOSINOPHILS # (AUTO) 0.02 x10^3/uL (0-0.4); EOSINOPHILS % (AUTO) 1 % (1-7); LYMPHOCYTES # (AUTO) 1.44 x10^3/uL (1-3.4); LYMPHOCYTES % (AUTO) 50 % (22-44); MD SCAN; MEAN PLATELET VOLUME 8.9 fL (7.4-10.4); MONOCYTES % (AUTO) 7 % (2-9); NEUTROPHILS # (AUTO) 1.19 x10^3/uL (1.8-6.8); NEUTROPHILS % (AUTO) 42 % (42-75)
[2018-03-31 05:17] LABS: PLATELET COUNT 14 x10^3/uL (130-400)
[2018-03-31] MEDS: INSULIN LISPRO 100 UNITS/ML, PEN SQ-INSULIN SCH ×4 (07:00→22:42)
[2018-03-31 07:24] VITALS: BP 127/77
[2018-03-31] MEDS: ONDANSETRON 2MG/ML, 2ML IVPush PRN ×2 (08:09→16:10)
[2018-03-31] MEDS: DEXAMETHASONE 4 MG TABLET PO SCH (09:06)
[2018-03-31] MEDS: NYSTATIN 500,000 UNITS/5 ML UDC PO SCH ×4 (09:07→22:41)
[2018-03-31] MEDS: OMEPRAZOLE 20 MG CAPSULE.DR PO SCH (09:07)
[2018-03-31] MEDS: FOLIC ACID 1 MG TABLET PO SCH (09:08)
[2018-03-31 13:15] VITALS: BP 140/76
[2018-03-31 15:37] LABS: CLOSTRIDIUM DIFFICILE ANTIGEN NEGATIVE; CLOSTRIDIUM DIFFICILE TOXIN NEGATIVE (Negative)
[2018-03-31 20:30] VITALS: BP 123/77
[2018-04-01] VITALS (7 sets, daily range): BP systolic 109–136; BP diastolic 72–80
[2018-04-01] MEDS: NYSTATIN 500,000 UNITS/5 ML UDC PO SCH ×4 (06:30→19:54)
[2018-04-01 06:58] LABS: ANION GAP 6 mmol/L (5-15); CALCIUM 7.5 mg/dL (8.5-10.1); CHLORIDE 107 mmol/L (98-107); CREATININE 1.27 mg/dL (0.55-1.02)
[2018-04-01 06:59] LABS: MEAN CORPUSCULAR HEMOGLOBIN 33.6 pg (27.0-34.8); MEAN CORPUSCULAR VOLUME 98.7 fL (80-100); MEAN PLATELET VOLUME 9.2 fL (7.4-10.4); RED BLOOD COUNT 2.65 x10^6/uL (3.82-5.3); RED CELL DISTRIBUTION WIDTH 18.9 % (9.6-15.2)
[2018-04-01 07:16] LABS: MD YES
[2018-04-01 07:19] LABS: ANISOCYTOSIS 1+; LYMPH#(MANUAL) 2.12 x10^3/uL (1-3.4); LYMPHS% (MANUAL) 53 % (22-44); MONOS#(MANUAL) 0.28 x10^3/uL (0.3-2.7); MONOS% (MANUAL) 7 % (2-9); SEGS% (MANUAL) 40 % (42-75)
[2018-04-01 07:20] LABS: <PLATELET ESTIMATE> DECREASED; <PLT MORPHOLOGY> QNS FOR PLT MORPH
[2018-04-01 07:22] LABS: PLATELET COUNT 10 x10^3/uL (130-400)
[2018-04-01] MEDS: INSULIN LISPRO 100 UNITS/ML, PEN SQ-INSULIN SCH ×4 (07:35→21:00)
[2018-04-01] MEDS: FOLIC ACID 1 MG TABLET PO SCH (10:12)
[2018-04-01] MEDS: OMEPRAZOLE 20 MG CAPSULE.DR PO SCH (10:12)
[2018-04-01] MEDS ORDERED: LOPERAMIDE 2 MG CAPSULE PO PRN (15:00)
[2018-04-01] MEDS ORDERED: DIPHENHYDRAMINE 25 MG CAPSULE ONE (15:21)
[2018-04-01] MEDS: ACETAMINOPHEN 325 MG TABLET PO PRN (15:28)
[2018-04-01] MEDS: DIPHENHYDRAMINE 25 MG CAPSULE PO PRN (15:28)
[2018-04-02] VITALS (7 sets, daily range): BP systolic 98–129; BP diastolic 18–82
[2018-04-02] MEDS: NYSTATIN 500,000 UNITS/5 ML UDC PO SCH ×4 (05:15→20:08)
[2018-04-02] MEDS: OMEPRAZOLE 20 MG CAPSULE.DR PO SCH (05:16)
[2018-04-02 05:37] LABS: MEAN CORPUSCULAR HEMOGLOBIN 34.3 pg (27.0-34.8); MEAN CORPUSCULAR HGB CONC 34.8 g/dL (32.4-35.8); MEAN CORPUSCULAR VOLUME 98.6 fL (80-100); RED BLOOD COUNT 2.55 x10^6/uL (3.82-5.3)
[2018-04-02 05:40] LABS: ANION GAP 4 mmol/L (5-15); CALCIUM 7.6 mg/dL (8.5-10.1); CHLORIDE 108 mmol/L (98-107)
[2018-04-02 05:42] LABS: CREATININE 1.23 mg/dL (0.55-1.02)
[2018-04-02 05:56] LABS: MD YES
[2018-04-02 05:58] LABS: LYMPH#(MANUAL) 4.84 x10^3/uL (1-3.4); LYMPHS% (MANUAL) 78 % (22-44); MONOS% (MANUAL) 8 % (2-9); SEG#(MANUAL) 0.87 x10^3/uL (1.8-6.8); SEGS% (MANUAL) 14 % (42-75)
[2018-04-02 05:59] LABS: ANISOCYTOSIS 1+; MEAN PLATELET VOLUME 8.9 fL (7.4-10.4)
[2018-04-02 06:01] LABS: PLATELET COUNT 6 x10^3/uL (130-400)
[2018-04-02 06:02] LABS: <PLATELET ESTIMATE> DECREASED; <PLT MORPHOLOGY> QNS FOR PLT MORPH
[2018-04-02] MEDS: INSULIN LISPRO 100 UNITS/ML, PEN SQ-INSULIN SCH ×2 (07:00→11:00)
[2018-04-02] MEDS ORDERED: IMMUNE GLOBULIN IV ONE ×3 (07:30→21:00)
[2018-04-02] MEDS ORDERED: POTASSIUM CHLORIDE 20 MEQ TAB.ER.PRT PO ONE (08:00)
[2018-04-02] MEDS ORDERED: ACETAMINOPHEN 325 MG TABLET PO ONE (08:30)
[2018-04-02 08:41] LABS: MEAN CORPUSCULAR HGB CONC 34.4 g/dL (32.4-35.8); MEAN CORPUSCULAR VOLUME 98.9 fL (80-100); RED BLOOD COUNT 2.72 x10^6/uL (3.82-5.3); RED CELL DISTRIBUTION WIDTH 18.7 % (9.6-15.2)
[2018-04-02] MEDS: FOLIC ACID 1 MG TABLET PO SCH (08:50)
[2018-04-02] MEDS ORDERED: IMMUNE GLOB (GAMUNEX) 10GM/100ML IVPB ONE ×2 (09:00→21:00)
[2018-04-02 09:06] LABS: MEAN PLATELET VOLUME 9.1 fL (7.4-10.4)
[2018-04-02 09:07] LABS: PLATELET COUNT 7 x10^3/uL (130-400)
[2018-04-02 09:08] LABS: MD YES
[2018-04-02 09:11] LABS: BAND#(MANUAL) 0.07 x10^3/uL; BANDS%(MANUAL) 1 % (0-7); LYMPH#(MANUAL) 4.94 x10^3/uL (1-3.4); LYMPHS% (MANUAL) 76 % (22-44); MONOS#(MANUAL) 0.46 x10^3/uL (0.3-2.7); MONOS% (MANUAL) 7 % (2-9); SEG#(MANUAL) 1.04 x10^3/uL (1.8-6.8); SEGS% (MANUAL) 16 % (42-75)
[2018-04-02 09:12] LABS: <PLATELET ESTIMATE> DECREASED; <PLT MORPHOLOGY> QNS FOR PLT MORPH; ANISOCYTOSIS 1+
[2018-04-02] MEDS: DIPHENHYDRAMINE 25 MG CAPSULE PO PRN ×2 (10:15→20:32)
[2018-04-02 20:11] LABS: BASOPHILS # (AUTO) 0.01 x10^3/uL (0-0.1); BASOPHILS % (AUTO) 0 % (0-1); EOSINOPHILS # (AUTO) 0.02 x10^3/uL (0-0.4); EOSINOPHILS % (AUTO) 0 % (1-7); LYMPHOCYTES # (AUTO) 4.04 x10^3/uL (1-3.4); LYMPHOCYTES % (AUTO) 75 % (22-44); MD MORPH REVIEW ONLY; MEAN CORPUSCULAR HGB CONC 34.5 g/dL (32.4-35.8); MEAN CORPUSCULAR VOLUME 98.8 fL (80-100); MEAN PLATELET VOLUME 8.6 fL (7.4-10.4); MONOCYTES # (AUTO) 0.39 x10^3/uL (0.2-0.8); MONOCYTES % (AUTO) 7 % (2-9); NEUTROPHILS # (AUTO) 0.93 x10^3/uL (1.8-6.8); NEUTROPHILS % (AUTO) 17 % (42-75); RED BLOOD COUNT 2.47 x10^6/uL (3.82-5.3); RED CELL DISTRIBUTION WIDTH 18.9 % (9.6-15.2)
[2018-04-02 20:12] LABS: <PLATELET ESTIMATE> DECREASED; <PLT MORPHOLOGY> QNS FOR PLT MORPH; ANISOCYTOSIS 1+
[2018-04-02 20:13] LABS: PLATELET COUNT 6 x10^3/uL (130-400)
[2018-04-02] MEDS: ONDANSETRON 2MG/ML, 2ML IVPush PRN (22:02)
[2018-04-03] VITALS (7 sets, daily range): BP systolic 103–115; BP diastolic 68–72
[2018-04-03] MEDS: NYSTATIN 500,000 UNITS/5 ML UDC PO SCH ×4 (06:00→21:00)
[2018-04-03] MEDS: OMEPRAZOLE 20 MG CAPSULE.DR PO SCH (06:06)
[2018-04-03 06:33] LABS: ANION GAP 5 mmol/L (5-15); CALCIUM 7.1 mg/dL (8.5-10.1); CHLORIDE 106 mmol/L (98-107)
[2018-04-03 06:34] LABS: CREATININE 1.32 mg/dL (0.55-1.02)
[2018-04-03 07:22] LABS: MD YES
[2018-04-03 07:23] LABS: MEAN CORPUSCULAR HEMOGLOBIN 34.3 pg (27.0-34.8); MEAN CORPUSCULAR VOLUME 98.1 fL (80-100); MEAN PLATELET VOLUME 8.7 fL (7.4-10.4); RED BLOOD COUNT 2.43 x10^6/uL (3.82-5.3); RED CELL DISTRIBUTION WIDTH 19.1 % (9.6-15.2)
[2018-04-03 07:27] LABS: LYMPH#(MANUAL) 4.51 x10^3/uL (1-3.4); LYMPHS% (MANUAL) 92 % (22-44); MONOS% (MANUAL) 4 % (2-9); SEGS% (MANUAL) 4 % (42-75)
[2018-04-03 07:28] LABS: <PLT MORPHOLOGY> NORMAL PLT MORPH; ANISOCYTOSIS 1+
[2018-04-03 07:29] LABS: <PLATELET ESTIMATE> DECREASED; PLATELET COUNT 6 x10^3/uL (130-400)
[2018-04-03] MEDS ORDERED: POTASSIUM CHLORIDE 20 MEQ TAB.ER.PRT PO ONE (08:00)
[2018-04-03] MEDS: FOLIC ACID 1 MG TABLET PO SCH (09:02)
[2018-04-03] MEDS: DIPHENHYDRAMINE 25 MG CAPSULE PO PRN (13:41)
[2018-04-03] MEDS: ACETAMINOPHEN 325 MG TABLET PO PRN (13:41)
[2018-04-03 18:41] LABS: BASOPHILS % (AUTO) 0 % (0-1); EOSINOPHILS # (AUTO) 0.02 x10^3/uL (0-0.4); EOSINOPHILS % (AUTO) 0 % (1-7); LYMPHOCYTES % (AUTO) 75 % (22-44); MD SCAN; MEAN CORPUSCULAR HEMOGLOBIN 34.4 pg (27.0-34.8); MEAN CORPUSCULAR VOLUME 98.2 fL (80-100); MEAN PLATELET VOLUME 9.5 fL (7.4-10.4); MONOCYTES # (AUTO) 0.43 x10^3/uL (0.2-0.8); MONOCYTES % (AUTO) 7 % (2-9); NEUTROPHILS # (AUTO) 1.06 x10^3/uL (1.8-6.8); NEUTROPHILS % (AUTO) 17 % (42-75); RED BLOOD COUNT 2.45 x10^6/uL (3.82-5.3); RED CELL DISTRIBUTION WIDTH 19.4 % (9.6-15.2)
[2018-04-03 18:46] LABS: PLATELET COUNT 6 x10^3/uL (130-400)
[2018-04-04 01:08] VITALS: BP 122/78
[2018-04-04] MEDS ORDERED: ALBUTEROL SULFATE 2.5 MG/3 ML NPPB PRN (03:00)
[2018-04-04] MEDS: OMEPRAZOLE 20 MG CAPSULE.DR PO SCH (05:31)
[2018-04-04] MEDS: NYSTATIN 500,000 UNITS/5 ML UDC PO SCH ×4 (06:00→19:55)
[2018-04-04 06:15] LABS: CHLORIDE 109 mmol/L (98-107)
[2018-04-04 06:23] LABS: MEAN CORPUSCULAR HGB CONC 34.6 g/dL (32.4-35.8); MEAN CORPUSCULAR VOLUME 98.4 fL (80-100); RED BLOOD COUNT 2.42 x10^6/uL (3.82-5.3); RED CELL DISTRIBUTION WIDTH 18.8 % (9.6-15.2)
[2018-04-04 06:30] LABS: ANION GAP 6 mmol/L (5-15); CALCIUM 7.7 mg/dL (8.5-10.1); CREATININE 1.39 mg/dL (0.55-1.02)
[2018-04-04 06:46] LABS: MEAN PLATELET VOLUME 7.9 fL (7.4-10.4)
[2018-04-04 06:47] LABS: PLATELET COUNT 7 x10^3/uL (130-400)
[2018-04-04 06:51] LABS: MD YES
[2018-04-04 06:55] LABS: BAND#(MANUAL) 0.05 x10^3/uL; BANDS%(MANUAL) 1 % (0-7); LYMPH#(MANUAL) 3.77 x10^3/uL (1-3.4); LYMPHS% (MANUAL) 77 % (22-44); MONOS% (MANUAL) 4 % (2-9); SEG#(MANUAL) 0.88 x10^3/uL (1.8-6.8); SEGS% (MANUAL) 18 % (42-75)
[2018-04-04 06:57] LABS: <PLATELET ESTIMATE> DECREASED; <PLT MORPHOLOGY> NORMAL PLT MORPH; ANISOCYTOSIS 1+
[2018-04-04] MEDS ORDERED: POTASSIUM CHLORIDE 20 MEQ TAB.ER.PRT PO SCH (08:00)
[2018-04-04 08:29] VITALS: BP 117/74
[2018-04-04] MEDS: FOLIC ACID 1 MG TABLET PO SCH (09:00)
[2018-04-04] MEDS ORDERED: POTASSIUM CHLORIDE 40 MEQ in SODIUM CHLORIDE 0.9% 100 ML IV ONE (09:30)
[2018-04-04] MEDS ORDERED: MAGNESIUM SULFATE PMX 4GM/100M 100 ML IV ONE (09:30)
[2018-04-04 13:56] VITALS: BP 110/73
[2018-04-04 20:07] VITALS: BP 127/78
[2018-04-05 03:03] LABS: MEAN CORPUSCULAR HEMOGLOBIN 34.2 pg (27.0-34.8); MEAN CORPUSCULAR HGB CONC 34.5 g/dL (32.4-35.8); MEAN CORPUSCULAR VOLUME 99.3 fL (80-100); MEAN PLATELET VOLUME 9.8 fL (7.4-10.4); RED BLOOD COUNT 2.43 x10^6/uL (3.82-5.3); RED CELL DISTRIBUTION WIDTH 19.2 % (9.6-15.2)
[2018-04-05 03:04] LABS: PLATELET COUNT 9 x10^3/uL (130-400)
[2018-04-05 03:05] LABS: MD YES
[2018-04-05 03:13] LABS: ANION GAP 6 mmol/L (5-15); CALCIUM 7.8 mg/dL (8.5-10.1); CHLORIDE 107 mmol/L (98-107)
[2018-04-05 03:14] VITALS: BP 105/71
[2018-04-05 03:16] LABS: ANISOCYTOSIS 1+; LYMPHS% (MANUAL) 80 % (22-44); MONOS#(MANUAL) 0.17 x10^3/uL (0.3-2.7); MONOS% (MANUAL) 3 % (2-9); REACTIVE LYMPHS # (MANUAL) 0.06 x10^3/uL (0-0); REACTIVE LYMPHS % (MANUAL) 1 % (0-0); SEG#(MANUAL) 0.88 x10^3/uL (1.8-6.8); SEGS% (MANUAL) 16 % (42-75)
[2018-04-05 03:17] LABS: <PLATELET ESTIMATE> DECREASED; <PLT MORPHOLOGY> QNS FOR PLT MORPH
[2018-04-05] MEDS: OMEPRAZOLE 20 MG CAPSULE.DR PO SCH (05:31)
[2018-04-05] MEDS: NYSTATIN 500,000 UNITS/5 ML UDC PO SCH ×4 (05:31→21:00)
[2018-04-05] MEDS: ACETAMINOPHEN 325 MG TABLET PO PRN (08:39)
[2018-04-05] MEDS: FOLIC ACID 1 MG TABLET PO SCH (08:39)
[2018-04-05 08:54] VITALS: BP 110/75
[2018-04-05 16:03] VITALS: BP 113/70
[2018-04-05] MEDS ORDERED: POTASSIUM CHLORIDE 20 MEQ TAB.ER.PRT PO ONE (18:00)
[2018-04-05] MEDS ORDERED: POTASSIUM CHLORIDE 20 MEQ in SODIUM CHLORIDE 0.9% 250 ML IV ONE (18:30)
[2018-04-05 20:25] VITALS: BP 109/70
[2018-04-06] VITALS (10 sets, daily range): BP systolic 108–123; BP diastolic 68–77
[2018-04-06] MEDS: OMEPRAZOLE 20 MG CAPSULE.DR PO SCH (05:06)
[2018-04-06 05:27] LABS: MEAN CORPUSCULAR HEMOGLOBIN 33.5 pg (27.0-34.8); MEAN CORPUSCULAR HGB CONC 33.9 g/dL (32.4-35.8); MEAN CORPUSCULAR VOLUME 98.9 fL (80-100); RED BLOOD COUNT 2.45 x10^6/uL (3.82-5.3); RED CELL DISTRIBUTION WIDTH 19.2 % (9.6-15.2)
[2018-04-06 05:30] LABS: ANION GAP 7 mmol/L (5-15); CALCIUM 7.7 mg/dL (8.5-10.1); CHLORIDE 109 mmol/L (98-107); CREATININE 1.48 mg/dL (0.55-1.02)
[2018-04-06] MEDS: NYSTATIN 500,000 UNITS/5 ML UDC PO SCH ×4 (06:00→20:19)
[2018-04-06 06:24] LABS: MEAN PLATELET VOLUME 9.2 fL (7.4-10.4)
[2018-04-06 06:25] LABS: PLATELET COUNT 14 x10^3/uL (130-400)
[2018-04-06 06:27] LABS: BASOPHILS # (AUTO) 0.01 x10^3/uL (0-0.1); BASOPHILS % (AUTO) 0 % (0-1); EOSINOPHILS % (AUTO) 0 % (1-7); LYMPHOCYTES # (AUTO) 3.46 x10^3/uL (1-3.4); LYMPHOCYTES % (AUTO) 68 % (22-44); MD SCAN; MONOCYTES # (AUTO) 0.46 x10^3/uL (0.2-0.8); MONOCYTES % (AUTO) 9 % (2-9); NEUTROPHILS # (AUTO) 1.15 x10^3/uL (1.8-6.8); NEUTROPHILS % (AUTO) 23 % (42-75)
[2018-04-06] MEDS: FOLIC ACID 1 MG TABLET PO SCH (08:23)
[2018-04-06] MEDS: ACETAMINOPHEN 325 MG TABLET PO PRN (11:15)
[2018-04-06] MEDS: DIPHENHYDRAMINE 25 MG CAPSULE PO PRN (11:15)
[2018-04-06] MEDS ORDERED: POTASSIUM CHLORIDE 40 MEQ in SODIUM CHLORIDE 0.9% 500 ML IV ONE (17:00)
[2018-04-07 03:00] VITALS: BP 111/80
[2018-04-07 03:45] LABS: MEAN CORPUSCULAR HEMOGLOBIN 33.8 pg (27.0-34.8); MEAN CORPUSCULAR HGB CONC 34.5 g/dL (32.4-35.8); MEAN PLATELET VOLUME 8.1 fL (7.4-10.4); PLATELET COUNT 131 x10^3/uL (130-400); RED BLOOD COUNT 2.22 x10^6/uL (3.82-5.3); RED CELL DISTRIBUTION WIDTH 19.3 % (9.6-15.2)
[2018-04-07 03:50] LABS: ANION GAP 6 mmol/L (5-15); CALCIUM 7.9 mg/dL (8.5-10.1); CHLORIDE 110 mmol/L (98-107); CREATININE 1.38 mg/dL (0.55-1.02)
[2018-04-07 04:00] VITALS: BP 108/72
[2018-04-07 04:18] LABS: BASOPHILS % (AUTO) 0 % (0-1); EOSINOPHILS # (AUTO) 0.01 x10^3/uL (0-0.4); EOSINOPHILS % (AUTO) 0 % (1-7); LYMPHOCYTES # (AUTO) 3.08 x10^3/uL (1-3.4); LYMPHOCYTES % (AUTO) 66 % (22-44); MD SCAN; MONOCYTES # (AUTO) 0.59 x10^3/uL (0.2-0.8); MONOCYTES % (AUTO) 13 % (2-9); NEUTROPHILS # (AUTO) 0.95 x10^3/uL (1.8-6.8); NEUTROPHILS % (AUTO) 21 % (42-75)
[2018-04-07] MEDS: NYSTATIN 500,000 UNITS/5 ML UDC PO SCH ×2 (06:01→10:24)
[2018-04-07] MEDS: OMEPRAZOLE 20 MG CAPSULE.DR PO SCH (06:01)
[2018-04-07] MEDS ORDERED: MAGNESIUM SULFATE PMX 4GM/100M 100 ML IVPB ONE (07:00)
[2018-04-07 07:23] VITALS: BP 108/70
[2018-04-07] MEDS: FOLIC ACID 1 MG TABLET PO SCH (08:23)
[2018-04-07 13:56] VITALS: BP 144/77
[2018-04-07 14:12] LABS: MEAN CORPUSCULAR HEMOGLOBIN 34.5 pg (27.0-34.8); MEAN CORPUSCULAR HGB CONC 35.1 g/dL (32.4-35.8); MEAN CORPUSCULAR VOLUME 98.3 fL (80-100); MEAN PLATELET VOLUME 7.8 fL (7.4-10.4); PLATELET COUNT 138 x10^3/uL (130-400); RED BLOOD COUNT 2.46 x10^6/uL (3.82-5.3); RED CELL DISTRIBUTION WIDTH 19.3 % (9.6-15.2)
[2018-04-07 14:27] LABS: MD YES
[2018-04-07 16:14] LABS: LYMPH#(MANUAL) 3.39 x10^3/uL (1-3.4); LYMPHS% (MANUAL) 64 % (22-44); MONOS#(MANUAL) 0.53 x10^3/uL (0.3-2.7); MONOS% (MANUAL) 10 % (2-9); REACTIVE LYMPHS # (MANUAL) 0.27 x10^3/uL (0-0); REACTIVE LYMPHS % (MANUAL) 5 % (0-0); SEG#(MANUAL) 1.11 x10^3/uL (1.8-6.8); SEGS% (MANUAL) 21 % (42-75)
[2018-04-07 16:23] LABS: <PLATELET ESTIMATE> ADEQUATE; <PLT MORPHOLOGY> NORMAL PLT MORPH; ROULEAUX 1+
== END 2018-04-07 16:58 | disposition home or self-care (01) | DRG 808 ==
LOC: ED 16:34 → EDIP 17:23 → 3NW 18:28
PROVIDERS: ADMIT Internal Medicine; ATTEND Internal Medicine
PROC: 30233R1 Transfusion of Nonautologous Platelets into Peripheral Vein, Percutaneous Approach (ICD-10-PCS; principal; 2018-03-27)
PROC: 30233N1 Transfusion of Nonautologous Red Blood Cells into Peripheral Vein, Percutaneous Approach (ICD-10-PCS; 2018-03-27)
DX: D61.810 Antineoplastic chemotherapy induced pancytopenia (principal); N17.0 Acute kidney failure with tubular necrosis; C78.01 Secondary malignant neoplasm of right lung; C78.02 Secondary malignant neoplasm of left lung; D69.3 Immune thrombocytopenic purpura; J45.909 Unspecified asthma, uncomplicated; K21.9 Gastro-esophageal reflux disease without esophagitis; K44.9 Diaphragmatic hernia without obstruction or gangrene; B37.9 Candidiasis, unspecified; T45.1X5A Adverse effect of antineoplastic and immunosuppressive drugs, initial encounter; K59.00 Constipation, unspecified; E87.6 Hypokalemia; R04.0 Epistaxis; R73.9 Hyperglycemia, unspecified; Z80.3 Family history of malignant neoplasm of breast; Z87.440 Personal history of urinary (tract) infections; Z90.49 Acquired absence of other specified parts of digestive tract; Z87.01 Personal history of pneumonia (recurrent); Z90.11 Acquired absence of right breast and nipple; Z90.710 Acquired absence of both cervix and uterus; Z88.0 Allergy status to penicillin; Z88.2 Allergy status to sulfonamides; Y92.89 Other specified places as the place of occurrence of the external cause; Z85.118 Personal history of other malignant neoplasm of bronchus and lung; Z85.3 Personal history of malignant neoplasm of breast
CPT/HCPCS: 36415; 36430; 80048; 80053; 81003; 81373; 82962; 83036; 83735; 84100; 85025; 85049; 85379; 85610; 85730; 86850; 86870; 86900; 86902; 86922; 86923; 87324; 94640; G0378; J1561; J2405; J3480; J7613; J7626; Q0169; J1815; J3475; J7040; J7050; P9016; P9035; P9052; Q0163

== ENCOUNTER → 2018-04-27 | Outpatient (CLI) | payer MEDICARE | END | disposition home or self-care (01) | LOC: CFH 13:02 | PROVIDERS: ATTEND Internal Medicine Hematology & Oncology | DX: R91.8 Other nonspecific abnormal finding of lung field (principal); C50.911 Malignant neoplasm of unspecified site of right female breast; C34.11 Malignant neoplasm of upper lobe, right bronchus or lung; Z85.3 Personal history of malignant neoplasm of breast | CPT/HCPCS: 71250 ==

== ENCOUNTER → 2018-06-19 | Outpatient (CLI) | payer MEDICARE | END | disposition home or self-care (01) | LOC: CFH 08:38 | PROVIDERS: ATTEND Internal Medicine Hematology & Oncology | DX: C34.11 Malignant neoplasm of upper lobe, right bronchus or lung (principal); C50.911 Malignant neoplasm of unspecified site of right female breast; R91.8 Other nonspecific abnormal finding of lung field; Z85.3 Personal history of malignant neoplasm of breast; Z87.891 Personal history of nicotine dependence | CPT/HCPCS: 71250 ==

== ENCOUNTER → 2018-09-21 | Outpatient (CLI) | payer MEDICARE | END | disposition home or self-care (01) | LOC: CFH 11:39 | PROVIDERS: ATTEND Internal Medicine Hematology & Oncology | DX: C50.911 Malignant neoplasm of unspecified site of right female breast (principal); C34.11 Malignant neoplasm of upper lobe, right bronchus or lung; R91.8 Other nonspecific abnormal finding of lung field; K76.89 Other specified diseases of liver; Z85.3 Personal history of malignant neoplasm of breast | CPT/HCPCS: 71250 ==

== ENCOUNTER 2018-11-17 12:11 | Outpatient (CLI) | payer MEDICARE ==
[~2018-11-17] VITALS: Ht 170.2 cm; Wt 89.4 kg
[2018-11-17 13:29] VITALS: BP 129/78
== END 2018-11-17 23:59 | disposition home or self-care (01) ==
LOC: INFUSION 12:11
PROVIDERS: ATTEND Internal Medicine Hematology & Oncology
DX: Z51.11 Encounter for antineoplastic chemotherapy (principal); C34.11 Malignant neoplasm of upper lobe, right bronchus or lung; C50.911 Malignant neoplasm of unspecified site of right female breast; E03.9 Hypothyroidism, unspecified
CPT/HCPCS: 36415; 80053; 83735; 84443; 96375; 96413; 96415; J1200; J1720; J9299; 96365; 96366

== ENCOUNTER → 2019-03-11 | Outpatient (CLI) | payer MEDICARE ==
[~2019-03-11] MED LIST changes: -ALPR-475 PO; +ALPR0.5T7 PO
== END | disposition home or self-care (01) ==
LOC: CFH 09:56
PROVIDERS: ATTEND Internal Medicine Hematology & Oncology
DX: K57.30 Diverticulosis of large intestine without perforation or abscess without bleeding (principal); K80.20 Calculus of gallbladder without cholecystitis without obstruction; E04.1 Nontoxic single thyroid nodule; C50.911 Malignant neoplasm of unspecified site of right female breast; C34.82 Malignant neoplasm of overlapping sites of left bronchus and lung; Z85.3 Personal history of malignant neoplasm of breast
CPT/HCPCS: 71250; 74176

== ENCOUNTER → 2019-04-16 | Outpatient (CLI) | payer MEDICARE | END | disposition home or self-care (01) | LOC: RAD 12:43 | PROVIDERS: ATTEND Internal Medicine Hematology & Oncology | DX: M16.11 Unilateral primary osteoarthritis, right hip (principal); M47.816 Spondylosis without myelopathy or radiculopathy, lumbar region ==

== ENCOUNTER → 2019-04-29 | Outpatient (CLI) | payer MEDICARE | END | disposition home or self-care (01) | LOC: CFH 12:57 | PROVIDERS: ATTEND Internal Medicine Hematology & Oncology | DX: C50.911 Malignant neoplasm of unspecified site of right female breast (principal); C34.82 Malignant neoplasm of overlapping sites of left bronchus and lung; M47.816 Spondylosis without myelopathy or radiculopathy, lumbar region; Z85.3 Personal history of malignant neoplasm of breast | CPT/HCPCS: 72192 ==

== ENCOUNTER → 2019-05-17 | Outpatient (CLI) | payer MEDICARE ==
[~2019-05-17] MED LIST changes: +CA C1TAB60 PO; +CHOL1CRY3 PO; -OMEP20CA14 PO; +OMEP20CA20 PO
== END | disposition home or self-care (01) ==
LOC: RAD 10:50
PROVIDERS: ATTEND Internal Medicine Hematology & Oncology
DX: C34.82 Malignant neoplasm of overlapping sites of left bronchus and lung (principal); C50.911 Malignant neoplasm of unspecified site of right female breast; Z85.3 Personal history of malignant neoplasm of breast
CPT/HCPCS: 78306; A9503

== ENCOUNTER → 2019-05-18 | Outpatient (CLI) | payer MEDICARE | END | disposition home or self-care (01) | LOC: ROC 13:34 | PROVIDERS: ATTEND Radiology Radiation Oncology | DX: C34.90 Malignant neoplasm of unspecified part of unspecified bronchus or lung (principal); Z85.3 Personal history of malignant neoplasm of breast; Z90.11 Acquired absence of right breast and nipple; Z88.0 Allergy status to penicillin; Z88.2 Allergy status to sulfonamides | CPT/HCPCS: G0463 ==